=== PATIENT | female | born 1975 | race Caucasian/White ===

== ENCOUNTER 2022-11-05 08:55 | Inpatient (IN) ==
[2022-11-05 09:45] LABS: Hematocrit 46.7 % (35-45); Hemoglobin 16.1 g/dL (11.5-14.3); Mean Corpuscular Hemoglobin 35.2 pg (27-33); Mean Corpuscular Hgb Conc 34.4 g/dL (31-36); Mean Corpuscular Volume 102.4 fL (80-97); Mean Platelet Volume 7.7 fL (7.5-11.2); Platelet Count 280 10^3/uL (150-450); Red Blood Count 4.56 10^6/uL (3.63-4.92); Red Cell Distribution Width 13.7 % (12-17); White Blood Count 11.6 10^3/uL (3.8-11.8)
[2022-11-05 09:48] LABS: Urine Appearance Cloudy; Urine Bilirubin Negative (Negative); Urine Blood 1+ (Negative); Urine Color Yellow; Urine Glucose Negative (Negative); Urine Ketones Negative (Negative); Urine Nitrite Negative (Negative); Urine Protein Negative (Negative); Urine Specific Gravity 1.012 (1.002-1.030); Urine Urobilinogen Negative (Negative)
[2022-11-05 09:51] LABS: Urine Bacteria Absent (Absent); Urine Red Blood Cell 2+(6-10/hpf) (Absent); Urine Squamous Epithelial Cell Present (Absent); Urine White Blood Cell Trace(0-5/hpf) (Absent)
[2022-11-05 10:12] LABS: ABS Basophils 0.1 10^3/uL (0.0-0.1); ABS Eosinophils 0.1 10^3/uL (0.0-0.5); ABS Lymphocytes 1.5 10^3/uL (1.0-4.8); ABS Monocytes 0.6 10^3/uL (0.0-0.9); ABS Neutrophils 9.3 10^3/uL (1.5-7.6); ABS Nucleated RBC 0.01 10^3/ul; Macrocytosis 1+; Nucleated Red Blood Cells % 0.1 /100 WBC (0.0-0.4)
[2022-11-05 10:21] LABS: ALT 14 U/L (7-52); AST 18 U/L (13-39); Albumin 4.5 g/dL (3.2-5.2); Albumin/Globulin Ratio 1.5 (1-3); Alkaline Phosphatase 66 U/L (35-149); Anion Gap 11 mmol/L (2-16); Blood Urea Nitrogen 16 mg/dL (6-24); CO2 Carbon Dioxide 26 mmol/L (22-32); Calcium 9.1 mg/dL (8.6-10.3); Chloride 103 mmol/L (101-111); Creatinine, Serum 0.56 mg/dL (0.51-0.95); Globulin 3.1 g/dL (2-4); Glucose 84 mg/dL (70-100); Potassium 4.2 mmol/L (3.5-5.0); Sodium 140 mmol/L (135-145); Total Protein 7.6 g/dL (6.4-8.9); eGFR CKD-EPI 113.9 (>60)
[2022-11-05 10:22] LABS: Urine Benzodiazepine Screen None Detected (None Detect); Urine Cannabinoids Screen None Detected (None Detect); Urine Opiates Screen None Detected (None Detect)
[2022-11-05 10:25] LABS: Acetaminophen < 15 mcg/mL; Alcohol, S < 13 mg/dL (<13); Salicylate < 2.50 mg/dL (<30)
[2022-11-05 10:28] LABS: HCG Pregnancy < 0.60 mIU/mL
[2022-11-05 10:36] LABS: TSH Ultra Thyroid Stim Horm 2.25 mcIU/mL (0.34-5.60)
[2022-11-05] MEDS ORDERED: Al Hydrox/Mg Hydrox/Simet LIQ 30 ML UDC PO PRN (11:45)
[2022-11-06 08:21] LABS: HDL Cholesterol 38.2 mg/dL
[2022-11-06] MEDS: Vitamin THERAPEUTIC TAB PO SCH (09:00)
[2022-11-06] MEDS: Nicotine Lozenge mini 4 MG LOZNG.MINI MT PRN ×2 (15:07→17:42)
[2022-11-07] MEDS: Vitamin THERAPEUTIC TAB PO SCH (08:30)
[2022-11-07] MEDS: Nicotine Lozenge mini 4 MG LOZNG.MINI MT PRN ×3 (08:31→17:14)
[2022-11-07] MEDS: Nicotine GUM 4MG FRUIT FLAVOR PO PRN ×2 (14:38→16:46)
[2022-11-08] MEDS: Vitamin THERAPEUTIC TAB PO SCH (08:15)
[2022-11-08] MEDS: Nicotine GUM 4MG FRUIT FLAVOR PO PRN ×2 (12:40→17:32)
[2022-11-08] MEDS: Nicotine Lozenge mini 4 MG LOZNG.MINI MT PRN (16:53)
[2022-11-09] MEDS: Vitamin THERAPEUTIC TAB PO SCH (07:51)
[2022-11-09] MEDS ORDERED: Venlafaxine XR 75 mg PO SCH (09:00)
[2022-11-09] MEDS: Nicotine GUM 4MG FRUIT FLAVOR PO PRN ×4 (09:12→16:45)
[2022-11-09] MEDS: Nicotine Lozenge mini 4 MG LOZNG.MINI MT PRN ×2 (10:34→18:07)
[2022-11-10] MEDS: Venlafaxine XR 75 mg PO SCH (07:50)
[2022-11-10] MEDS: Vitamin THERAPEUTIC TAB PO SCH (07:50)
[2022-11-10] MEDS: Nicotine GUM 4MG FRUIT FLAVOR PO PRN ×3 (09:09→17:29)
[2022-11-10] MEDS: Acetylcysteine 600mgCAP(RENAL) PO SCH ×2 (10:57→20:03)
[2022-11-10 12:25] VITALS: BP 117/68
[2022-11-10] MEDS ORDERED: CMCS:Doxepin 10 mg CAP (NF) PO SCH (21:00)
[2022-11-11] MEDS: Vitamin THERAPEUTIC TAB PO SCH (08:02)
[2022-11-11] MEDS: Venlafaxine XR 75 mg PO SCH (08:02)
[2022-11-11] MEDS: Acetylcysteine 600mgCAP(RENAL) PO SCH (08:04)
[2022-11-11] MEDS: Nicotine GUM 4MG FRUIT FLAVOR PO PRN (08:48)
== END 2022-11-11 13:40 | disposition home or self-care (01) | DRG 755 ==
LOC: ED 08:55 → EDHOLD 11:45 → BSU 13:09
PROVIDERS: ADMIT Psychiatry & Neurology Psychiatry; ATTEND Psychiatry & Neurology Psychiatry